=== PATIENT | female | born 1950 | race Caucasian/White ===

== ENCOUNTER 2018-03-10 19:39 | Inpatient (IN) | payer MEDICARE, OTHER ==
[~2018-03-10] VITALS: Ht 185.4 cm; Wt 107.5 kg
[2018-03-10 21:00] LABS: CLARITY,URINE CLOUDY (CLEAR); COLOR,URINE YELLOW (YELLOW); LEUKOCYTE ESTERASE ,URINE 2+ (NEGATIVE); NITRITE,URINE NEGATIVE (NEGATIVE)
[2018-03-10 21:01] LABS: BILIRUBIN,URINE NEGATIVE (NEGATIVE); KETONES,URINE 1+ (NEGATIVE); PROTEIN,URINE DIPSTICK 2+ (NEGATIVE); URINE UROBILINOGEN 0.2 mg/dL (0.2 - 1)
[2018-03-10 21:04] LABS: BASOPHILS % 0.2 % (0.0-1.0); HEMATOCRIT 30.2 % (34.2-44.1); HEMOGLOBIN 10.1 g/dL (12.0-16.0); LYMPHOCYTES # (AUTO) 0.9 (1.0-3.2); LYMPHOCYTES % 10.9 % (18.0-39.1); MEAN CORPUSCULAR HEMOGLOBIN 31.3 pg (28-32); MEAN CORPUSCULAR HGB CONC 33.4 g/dL (31-35); MEAN CORPUSCULAR VOLUME 93.5 fL (81-99); MONOCYTES # (AUTO) 0.5 (0.2-0.8); MONOCYTES % 6.2 % (4.4-11.3); NEUTROPHILS # (AUTO) 6.9 (2.1-6.9); PLATELET COUNT 196 x10e3/uL (140-360); RED BLOOD COUNT 3.23 x10e6/uL (3.6-5.1); RED CELL DISTRIBUTION WIDTH 13.5 % (11.7-14.4)
[2018-03-10] MEDS ORDERED: [UNRECOGNIZED DRUG - OTHER] PO (21:06)
[2018-03-10] MEDS ORDERED: LATANOPROST2.5 ML OP (21:06)
[2018-03-10] MEDS ORDERED: GABAPENTIN100 MG PO (21:06)
[2018-03-10] MEDS ORDERED: NOVOLIN N100 UNIT/1 SQ (21:06)
[2018-03-10] MEDS ORDERED: ARTIFICIAL TEAR15 ML OP (21:06)
[2018-03-10] MEDS ORDERED: NAMENDA10 MG PO (21:06)
[2018-03-10] MEDS ORDERED: MULTIVITAMINS1 EAC7 PO (21:06)
[2018-03-10] MEDS ORDERED: IBUPROFEN200 MG PO (21:06)
[2018-03-10] MEDS ORDERED: ASPIRIN CHEW81 MG PO (21:06)
[2018-03-10] MEDS ORDERED: ASCORBIC ACID500 M2 PO (21:06)
[2018-03-10] MEDS ORDERED: AMLODIPINE BESY10 MG PO (21:06)
[2018-03-10] MEDS ORDERED: EFFEXOR XR 3737.5 MG PO (21:06)
[2018-03-10] MEDS ORDERED: ACETAMINOPHEN325 M1 PO (21:06)
[2018-03-10] MEDS ORDERED: PROMETHAZINE HC25 M1 PO (21:06)
[2018-03-10] MEDS ORDERED: ULTRAM50 MG PO (21:06)
[2018-03-10] MEDS ORDERED: LEVSIN0.125 MG SL (21:06)
[2018-03-10] MEDS ORDERED: ZOLOFT50 MG PO (21:06)
[2018-03-10] MEDS ORDERED: MILK OF MA2400 MG/10 PO (21:06)
[2018-03-10] MEDS ORDERED: OMEPRAZOLE40 MG PO (21:06)
[2018-03-10 21:15] LABS: INR 0.93; PROTHROMBIN TIME 13.3 seconds (11.9-14.5)
[2018-03-10 21:16] LABS: PARTIAL THROMBOPLASTIN TIME 27.1 seconds (23.8-35.5)
[2018-03-10 21:17] LABS: BACTERIA,URINE MODERATE /HPF; WBC,URINE (MAN) 21-50 /HPF (0-5)
[2018-03-10 21:18] LABS: AMORPHOUS SEDIMENT,URINE MODERATE (FEW); EPITHELIAL CELLS,URINE FEW /LPF
[2018-03-10 21:20] LABS: ALBUMIN 3.1 g/dL (3.5-5.0); ANION GAP 15.4 mmol/L (8-16); CALCIUM 9.2 mg/dL (8.4-10.2); CREATININE, SERUM 1.22 mg/dL (0.57-1.11); MAGNESIUM 1.5 MG/DL (1.3-2.1); POTASSIUM 3.4 mmol/L (3.5-5.1)
[2018-03-10 21:27] LABS: CREATINE KINASE MB 1.1 ng/mL (0-5.0)
--- NOTE | 2018-03-10 21:54 | Diagnostic Imaging Report ---
KNEE LEFT THREE VIEWS HISTORY: Pain. COMPARISON: None available. FINDINGS: Exam limited by overlap of the patella by fracture fragments and obliquity on the AP view. Bones: Comminuted displaced fractures involving the distal femur and extending through the condyles. Joints: Advanced tricompartmental changes. Soft tissues: Soft tissue swelling and joint effusion. IMPRESSION: Comminuted displaced fractures of the distal femur. Signed by: DR. Arvin Carrasco MD on 03/10/2018 9:51 PM
[2018-03-10] MEDS ORDERED: SODIUM CHLORIDE 0.9% 1000ML 1,000 ML IV SCH (22:00)
[2018-03-10] MEDS ORDERED: MEROPENEM 1GRAM 1 GM in SODIUM CHLORIDE 0.9% 100 ML 100 ML IV SCH (22:00)
[2018-03-10] MEDS ORDERED: ACETAMINOPHEN 1000 MG/100 ML IV STA (22:03)
--- NOTE | 2018-03-10 22:09 | Diagnostic Imaging Report ---
EXAMINATION: Head CT without contrast. HISTORY:Status post fall. COMPARISON:None. TECHNIQUE: Multidetector axial images were obtained from the foramen magnum to the vertex without contrast. The images were reconstructed using brain and bone algorithms. Thin section brain images were reformatted into coronal and sagittal planes. Dose modulation, iterative reconstruction, and/or weight based adjustment of the mA/kV was utilized to reduce the radiation dose to as low as reasonably achievable. Intravenous contrast: None. IMAGE QUALITY: Suboptimal evaluation due to motion artifacts. FINDINGS: Skull/scalp: No lytic or blastic. lesions. No surgical changes. Parenchyma: Nonspecific bilateral confluent periventricular and patchy subcortical and deep white matter hypodensity are likely related to small vessel ischemic changes. Cortical-based hypodensity with regional volume loss in anterior aspect of left temporal lobe possibly represents chronic encephalomalacia related to prior trauma or vascular insult. No acute hemorrhage, mass or acute major vascular territorial infarct. Arteries: No density suggestive of thrombosis. Dural sinuses: No abnormal density suggestive of thrombosis. Ventricles: Moderate compensated dilatation due to volume loss. Extra-axial spaces: Nonspecific 1.2 cm dural based calcification in left middle cranial fossa. Brain volume: Advanced generalized cerebral volume loss. Craniocervical junction: No mass, Chiari malformation, or basilar invagination. Sella: No mass. Paranasal/mastoid sinuses: Mild mucosal thickening in left ethmoid sinus. IMPRESSION: 1. Suboptimal evaluation due to motion artifact, despite the limitation no gross acute posttraumatic intracranial abnormality. 2. Diffuse supratentorial white matter microvascular ischemic changes. Chronic encephalomalacia in left temporal lobe possibly sequel of prior trauma or vascular insult. 3. Advanced generalized cerebral volume loss. Signed by: Dr. Tia Middleton M.D. on 03/10/2018 10:06 PM
--- NOTE | 2018-03-10 22:14 | Diagnostic Imaging Report ---
History: Status post fall. Comparison studies: None Technique: Axial images were obtained through the cervical region.. Coronal and sagittal images reconstructed from the axial data. Dose modulation, iterative reconstruction, and/or weight based adjustment of the mA/kV was utilized to reduce the radiation dose to as low as reasonably achievable. Intravenous contrast: None Findings: Fractures: None. Soft tissue injuries: None. Atlantoaxial articulation: Intact. Alignment: Normal lordosis. No scoliosis. Cervicomedullary junction: No abnormalities. The foramen magnum is patent. Soft tissues: No abnormalities. Vertebrae: No fractures, infection or neoplasm. Degenerative changes: Mild degenerative disc disease at C4-C5 with posterior discussed effect complex without significant canal stenosis. C5-C6: Mild degenerative disc disease. No canal stenosis. Next and mild right foraminal stenosis due to facet and uncovertebral arthrosis.. IMPRESSION: 1. No acute cervical spine abnormalities. 2. Ligament, spinal cord and or vascular abnormalities cannot be excluded on the basis of this examination. Signed by: Dr. Tia Middleton M.D. on 03/10/2018 10:10 PM
[2018-03-10] MEDS: MEROPENEM 1GM 100 ML IV SCH (22:17)
--- NOTE | 2018-03-10 22:26 | Diagnostic Imaging Report ---
EXAM: CT Left Knee without Contrast INDICATION: reported comminuted distal left femur fx COMPARISON: None. TECHNIQUE: Left knee was scanned utilizing a multidetector helical scanner without IV contrast. Coronal and sagittal reformations were obtained. Routine protocol was performed. IV CONTRAST: None COMPLICATIONS: None RADIATION DOSE: Total DLP: 189.4 mGy*cm CTDIvol has been reviewed. It is below the limits set by the Radiation Protocol Committee (RPC). Dose modulation, iterative reconstruction, and/or weight based adjustment of the mA/kV was utilized to reduce the radiation dose to as low as reasonably achievable. FINDINGS: BONES: Severely comminuted moderately displaced fractures of the distal femur extending into the intercondylar notch. Visualized tibia and fibula as well as the patella appear intact. Advanced tricompartmental degenerative changes of the knee. SOFT TISSUES: Soft tissue swelling and small hemarthrosis. Diffuse vascular calcifications. Varicose veins noted. IMPRESSION: Severely comminuted moderately displaced fractures of the distal femur extending into the intercondylar notch. Signed by: DR. Arvin Carrasco MD on 03/10/2018 10:23 PM
--- NOTE | 2018-03-10 22:33 | Diagnostic Imaging Report ---
PELVIS AP 1-2 VIEWS HISTORY: Status post fall. Reported comminuted distal femur fracture. COMPARISON: None available. FINDINGS: Bones: No acute displaced fracture. Osseous alignment is within normal limits. Joints: Moderate degenerative changes of the hips, SI joints, and visualized lumbosacral spine. Soft tissues: The soft tissues appear unremarkable. IMPRESSION: No acute radiographic abnormality. Signed by: DR. Arvin Carrasco MD on 03/10/2018 10:30 PM
--- NOTE | 2018-03-10 22:34 | Diagnostic Imaging Report ---
EXAMINATION: CHEST SINGLE (PORTABLE) INDICATION: Fall. COMPARISON: None FINDINGS: AP view TUBES and LINES: None. LUNGS: Lungs are not well inflated. Lungs are clear. There is no evidence of pneumonia or pulmonary edema. PLEURA: No pleural effusion or pneumothorax. HEART AND MEDIASTINUM: The cardiomediastinal silhouette is unremarkable. BONES AND SOFT TISSUES: No acute displaced fractures within the limitations of technique. Soft tissues are unremarkable. UPPER ABDOMEN: No free air under the diaphragm. IMPRESSION: No acute thoracic abnormality. Signed by: DR. Arvin Carrasco MD on 03/10/2018 10:31 PM
[2018-03-10] MEDS ORDERED: ONDANSETRON HCL INJ 2MG/ML 2ML 2 MG/ML VIAL IV STA (23:52)
[2018-03-10] MEDS ORDERED: INSULIN LISPRO 100 UNIT/1 ML 3ML VIAL SQ STA (23:52)
[2018-03-10] MEDS ORDERED: MORPHINE SULFATE 2 MG/ML SYR 1ML IV STA (23:52)
[2018-03-10] MEDS ORDERED: MORPHINE SULFATE INJ 4 MG/ML INJ 1ML ONE (23:57)
[2018-03-11] MEDS ORDERED: MORPHINE SULFATE 2 MG/ML SYR 1ML IV PRN
[2018-03-11] MEDS ORDERED: SODIUM CHLORIDE 0.9% 1000ML 1,000 ML IV ONE
--- OUTSIDE RECORDS SUMMARY | 2018-03-11 00:02 | XMS REPORT ---
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 Allergies, Adverse Reactions, Alerts This patient has no known allergies or adverse reactions. Medications This patient has no known medications. Results Test Description Test Time Test Comments Text Results Atomic Results Result Comments CHEST SINGLE (PORTABLE) 2018-03-10 22:30:00 [place] [address] Patient Name: MALVIN DEXTER MR #: [id number] : 1950 Age/Sex: 67/F Req #: [id number] Adm Physician: Ordered by: DANIEL ROTH MD Report #: [id number] Location: ER Room/Bed: Procedure: [id number] DX/CHEST SINGLE (PORTABLE) Exam Date: 03/10/18 Exam Time: 2100 REPORT STATUS: Signed EXAMINATION: CHEST SINGLE (PORTABLE) INDICATION: Fall. COMPARISON: None FINDINGS: AP view TUBES and LINES: None. LUNGS: Lungs are not well inflated. Lungs are clear. There is no evidence of pneumonia or pulmonary edema. PLEURA: No pleural effusion or pneumothorax. HEART AND MEDIASTINUM: The cardiomediastinal silhouette is unremarkable. BONES AND SOFT TISSUES: No acute displaced fractures within the limitations of technique. Soft tissues are unremarkable. UPPER ABDOMEN: No free air under the diaphragm. IMPRESSION: No acute thoracic abnormality. Signed by: DR. Arvin Ta MD on 03/10/2018 10:31 PM Dictated By: ARVIN TA MD 30 Transcribed By: JAZ on 03/10/182230 COPY TO: DANIEL ROTH MD PELVIS AP 1-2 VIEWS 2018-03-10 22:28:00 [facility] [address] [place] [address] Patient Name: MALVIN DEXTER MR #: [id number] : 1950 Age/Sex: 67/F Req #: [id number] Adm Physician: Ordered by: DANIEL ROTH MD Report #: [id number] Location: ER Room/Bed: Procedure: [id number] DX/PELVIS AP 1-2 VIEWS Exam Date: 03/10/18 Exam Time: 2100 REPORT STATUS: Signed PELVIS AP 1-2 VIEWS HISTORY: Status post fall. Reported comminuted distal femur fracture. COMPARISON: None available. FINDINGS: Bones: No acute displaced fracture. Osseous alignment is within normal limits. Joints: Moderate degenerative changes of the hips, SI joints, and visualized lumbosacral spine. Soft tissues: The soft tissues appear unremarkable. IMPRESSION: No acute radiographic abnormali ty. Signed by: DR. Arvin Ta MD on 03/10/2018 10:30 PM Dictated By: ARVIN TA MD 29 Transcribed By: JAZ on 03/10/182229 COPY TO: DANIEL ROTH MD CT CERVICAL SPINE WO 2018-03-10 22:06:00 [facility] [address] [place] [address] Patient Name: MALVIN DEXTER MR #: [id number] : 1950 Age/Sex: 67/F Req #: [id number] Adm Physician: Ordered by: DANIEL ROTH MD Report #: [id number] Location: ER Room/Bed: Procedure: [id number] CT/CT CERVICAL SPINE WO Exam Date: 03/10/18 Exam Time: 2100 REPORT STATUS: Signed History: Status post fall. Comparison studies: None Technique: Axial images were obtained through the cervical region.. Coronal and sagittal images reconstructed from the axial data. Dose modulation, iterative reconstruction, and/or weight based adjustment of the mA/kV was utilized to reduce the radiation dose to as low as reasonably achievable. Intravenous contrast: None Findings: Fractures: None. Soft tissue injuries: None. Atlantoaxial articulation: Intact. Alignment: Normal lordosis. No scoliosis. Cervicomedullary junction: No abnormalities. The foramen magnum is patent. Soft tissues: No abnormalities. Vertebrae: No fractures, infection or neoplasm. Degenerative changes: Mild degenerative disc disease at C4-C5 with posterior discussed effect complex without significant canal stenosis. C5-C6: Mild degenerative disc disease. No canal stenosis. Next and mild right foraminal stenosis due to facet and uncovertebral arthrosis.. IMPRESSION: 1. No acute cervica l spine abnormalities. 2. Ligament, spinal cord and or vascular abnormalities cannot be excluded on the basis of this examination. Signed by: Dr. Tia Middleton M.D. on 03/10/2018 10:10 PM Dictated By: TIA MIDDLETON MD [id number] Transcribed By: JAZ on 03/10/18 2440 COPY TO: DANIEL ROTH MD CT KNEE LEFT WO 2018-03-10 21:51:00 [place] [address] Patient Name: MALVIN DEXTER MR #: [id number] : 1950 Age/Sex: 67/F Req #: [id number] Adm Physician: Ordered by: DANIEL ROTH MD Report #: [id number] Location: ER Room/Bed: Procedure: [id number] CT/CT KNEE LEFT WO Exam Date: 03/10/18 Exam Time: 2100 REPORT STATUS: Signed EXAM: CT Left Knee without Contrast INDICATION: reported comminuted distal left femur fx COMPARISON: None. TECHNIQUE: Left knee was scanned utilizing a multidetector helical scanner without IV contrast. Coronal and sagittal reformations were obtained. Routine protocol was performed. IV CONTRAST: None COMPLICATIONS: None RADIATION DOSE: Total DLP: 189.4 mGy*cm CTDIvol has been reviewed. It is below the limits set by the Radiation Protocol Committee (RPC). Dose modulation, iterative reconstruction, and/or weight based adjustment of the mA/kV was utilized to reduce the radiation dose to as low as reasonably achievable. FINDINGS: BONES: Severely comminuted moderately displaced fractures of the distal femur extending into the intercondylar notch. Visualized tibia and fibula as well as the patella appear intact. Advanced tricompartmental degenerative changes of the knee. SOFT TISSUES: Soft tissue swelling and small hemarthrosis. Diffuse vascular calcifications. Varicose veins noted. IMPRESSION: Severely comminuted moderately displaced fractures of the distal femur extending into the intercondylar notch. Signed by: DR. Arvin Ta MD on 03/10/2018 10:23 PM Dictated By: ARVIN TA MD 22 Transcribed By: JAZ on 03/10/182222 COPY TO: DANIEL ROTH MD CT BRAIN WO 2018-03-10 21:49:00 [place] [address] Patient Name: MALVIN DEXTER MR #: [id number] : 1950 Age/Sex: 67/F Req #: [id number] Adm Physician: Ordered by: DANIEL ROTH MD Report #: [id number] Location: ER Room/Bed: Procedure: [id number] CT/CT BRAIN WO Exam Date: 03/10/18 Exam Time: 2100 REPORT STATUS: Signed EXAMINATION: Head CT without contrast. HISTORY: Status post fall. COMPARISON:None. TECHNIQUE: Multidetector axial images were obtained from the foramen magnum to the vertex without contrast. The images were reconstructed using brain and bone algorithms. Thin section brain images were reformatted into coronal and sagittal planes. Dose modulation, iterative reconstruction, and/or weight based adjustment of the mA/kV was utilized to reduce the radiation dose to as low as reasonably achievable. Intravenous contrast: None. IMAGE QUALITY: Suboptimal evaluation due to motion artifacts. FINDINGS: Skull/scalp: No lytic or blastic. lesions. No surgical changes. Parenchyma: Nonspecific bilateral confluent periventricular and patchy subcortical and deep white matter hypodensity are likely related to small vessel ischemic changes. Cortical-based hypodensity with regional volume loss in anterior aspect of left temporal lobe possibly represents chronic encephalomalacia related to prior trauma or vascular insult. No acute hemorrhage, mass or acute major vascular territorial infarct. Arteries: No density suggestive of thrombosis. Dural sinuses: No abnormal density suggestive of thrombosis. Ventricles: Moderate compensated dilatation due to volume loss. Extra-axial spaces: Nonspecific 1.2 cm dural based calcification in left middle cranial fossa. Brain volume: Advanced generalized cerebral volume loss. Craniocervical junction: No mass, Chiari malformation, or basilar invagination. Sella: No mass. Paranasal/mastoid sinuses: Mild mucosal thickening in left ethmoid sinus. IMPRESSION: 1. Suboptimal evaluation due to motion artifact, despite the limitation no gross acute posttraumatic intracranial abnormality. 2. Diffuse supratentorial white matter microvascular ischemic changes. Chronic encephalomalacia in left temporal lobe possibly sequel of prior trauma or vascular insult. 3. Advanced generalized cerebral volume loss. Signed by: Dr. Tia Middleton M.D. on 03/10/2018 10:06 PM Dictated By: TIA MIDDLETON MD 05 Transcribed By: JAZ on 03/10/182205 COPY TO: DANIEL ROTH MD KNEE LEFT THREE VIEWS 2018-03-10 21:46:00 [place] [address] Patient Name: MALVIN DEXTER MR #: [id number] : 1950 Age/Sex: 67/F Req #: [id number] Adm Physician: Ordered by: DANIEL ROTH MD Report #: [id number] Location: ER Room/Bed: Procedure: [id number] DX/KNEE LEFT THREE VIEWS Exam Date: 03/10/18 Exam Time: 2100 REPORT STATUS: Signed KNEE LEFT THREE VIEWS HISTORY: Pain. COMPARISON: None available. FINDINGS: Exam limited by overlap of the patella by fracture fragments and obliquity on the AP view. Bones: Comminuted displaced fractures involving the distal femur and extending through the condyles. Joints: Advanced tricompartmental changes. Soft tissues: Soft tissue swelling and joint effusion. IMPRESSION: Comminuted displaced fractures of the distal femur. Signed by: DR. Arvin Ta MD on 03/10/2018 9:51 PM Dictated By: ARVIN TA MD 50 Transcribed By: JAZ on 03/10/182150 COPY TO: DANIEL ROTH MD
--- NOTE | 2018-03-11 01:12 | NUR ---
dr woody informed of bp 98/53. instructed to bolus remaining 300cc of ivf and then start on ns at 100cc/hr x 1.
--- NOTE | 2018-03-11 01:17 | NUR ---
300cc bolus completed. ns at 100cc/hr x 1 liter started.
[2018-03-11 05:35] LABS: BASOPHILS % 0.3 % (0.0-1.0); EOSINOPHILS % 0.3 % (0.0-6.0); HEMATOCRIT 25.7 % (34.2-44.1); HEMOGLOBIN 8.7 g/dL (12.0-16.0); LYMPHOCYTES # (AUTO) 1.3 (1.0-3.2); LYMPHOCYTES % 16.8 % (18.0-39.1); MEAN CORPUSCULAR HEMOGLOBIN 31.6 pg (28-32); MEAN CORPUSCULAR HGB CONC 33.9 g/dL (31-35); MEAN CORPUSCULAR VOLUME 93.5 fL (81-99); MONOCYTES # (AUTO) 0.6 (0.2-0.8); MONOCYTES % 8.2 % (4.4-11.3); NEUTROPHILS # (AUTO) 5.8 (2.1-6.9); NEUTROPHILS % 73.9 % (38.7-80.0); PLATELET COUNT 154 x10e3/uL (140-360); RED BLOOD COUNT 2.75 x10e6/uL (3.6-5.1); RED CELL DISTRIBUTION WIDTH 13.6 % (11.7-14.4)
[2018-03-11 05:56] LABS: ALBUMIN 2.7 g/dL (3.5-5.0); ALBUMIN/GLOBULIN RATIO 0.9 (0.8-2.0); ANION GAP 13.6 mmol/L (8-16); CALCIUM 8.7 mg/dL (8.4-10.2); POTASSIUM 3.6 mmol/L (3.5-5.1)
--- NOTE | 2018-03-11 07:00 | NUR ---
received report fromoff going nurse. patient in room in hospital bed resting quietly with eyes closed. no s/s of acute distress. resp even and nonlabored. pending room assignment, will continue to monitor.
[2018-03-11] MEDS: MEROPENEM 1GM 100 ML IV SCH ×2 (10:19→10:24)
[2018-03-11] MEDS ORDERED: DEXTROSE 50% SYRINGE 50 ML IV PRN (11:45)
[2018-03-11] MEDS ORDERED: PROMETHAZINE HCL 25 MG TAB PO PRN (11:45)
[2018-03-11] MEDS ORDERED: HYOSCYAMINE 0.125 MG TAB SL PRN (11:45)
[2018-03-11] MEDS ORDERED: TRAMADOL HCL 50 MG TAB PO PRN (11:45)
[2018-03-11] MEDS ORDERED: ACETAMINOPHEN 325 MG TAB PO PRN (11:45)
--- NOTE | 2018-03-11 12:57 | History and Physical ---
CHIEF COMPLAINT: Fall, from [facility]. HISTORY OF PRESENT ILLNESS: Ms. Blanco is a 67-year-old female. She was transferred after a fall at the [facility], she was at [facility]. Patient has dementia and is unable to give me any history. According to the ER notes, they spoke to the daughter and the patient is DNR. She has right DKA. Source of history is the chart and the ER chart. PAST MEDICAL HISTORY: Per the chart. History of hypertension and hyperlipidemia. She is bedbound, amputated lower extremities. REVIEW OF SYSTEMS: Unable to elicit any as patient is unable to give me any history. FAMILY AND SOCIAL HISTORY: Per the chart. She lives at the [facility]. PHYSICAL EXAMINATION VITAL SIGNS: Temperature 98.4, pulse of 103, blood pressure 119/56, respiratory rate of 18. HEENT: Head atraumatic, normocephalic. NECK: Supple. CHEST: Clear to auscultation bilaterally. No wheezing. HEART: S1 and S2 audible. ABDOMEN: Soft. EXTREMITIES: Below-knee amputation and then severely comminuted moderately displaced fracture of left knee. LABS: White count of 7.8, hemoglobin 8.7 and platelets 154. Chemistry is within normal limits. Creatinine was 1.2 yesterday and its 1.0 today with IV hydration. Sodium of 144 and potassium 3.6. ASSESSMENT: Ms. Blanco is a 67-year-old female. She is a [facility] resident, apparently has dementia but she is unable to give me any history. Patient had a brain CT done in the emergency room, which showed diffuse supratentorial white matter microvascular changes, chronic encephalomalacia and left temporal lobe sequelae from prior trauma, vascular insult, and traumatic brain injury versus the dementia which she has, presented after a fall from [facility] resulting in fracture of the femur. CURRENT PROBLEMS 1. Comminuted fracture of the femur. 2. Bedbound status. 3. Below-knee amputation status. 4. Hypertension. 5. Possible traumatic brain injury versus vascular dementia. PLAN 1. Resume the home medications. 2. Orthopedic consult. 3. Renal failure has resolved with IV hydration. 4. We will try to get in touch with patient's POA According to the sheet and ER physician's report, patient is DNR. If surgery is indicated, then she appears to be medically stable to undergo femur surgery. I will defer the need for surgery to orthopedic surgery. Job#: [id number] ALAN
[2018-03-11] MEDS ORDERED: SODIUM CHLORIDE 0.9% 1000ML 1,000 ML ONE (12:58)
--- NOTE | 2018-03-11 14:00 | NUR ---
German PALOMARES WITH DR. FREIRE'S SVC IN TO SEE THE PT AND SPOKE WITH FAMILY AT BEDSIDE RE SX FOR THIS PATIENT AND HAS ALSO SPOKE WITH DR. DAVIS
--- NOTE | 2018-03-11 14:50 | NUR ---
regular lunch tray ordered for this patient
--- NOTE | 2018-03-11 16:00 | NUR ---
PT HAS CONSUMED 90% OF HER LUNCH WITH MINIMAL ASSISTANCE
[2018-03-11] MEDS: MORPHINE SULFATE INJ 4 MG/ML INJ 1ML IV PRN (16:20)
[2018-03-11] MEDS: ONDANSETRON HCL INJ 2MG/ML 2ML 2 MG/ML VIAL IV PRN (16:20)
--- NOTE | 2018-03-11 18:10 | Consultation ---
DATE OF CONSULTATION: March 11, 2018 REASON FOR CONSULTATION: Left distal femur fracture. HISTORY OF PRESENT ILLNESS: This patient is a 67-year-old female with a significant history of advanced dementia, who is status post right BKA, who presents to the ER after a fall. The patient is a custodial resident at [facility]. She was reportedly discovered by the staff the following morning beside her bed. She was brought into [facility] ER where she was noted to have a left femur fracture. The patient has advanced dementia and does not respond to any questioning. Further history is obtained from her niece. Apparently, she has a 10-year history of dementia, which has progressively worsened over the last few years. The patient does not respond verbally to any communication. The patient had a right BKA from a diabetic foot wound in 2015. She has reportedly been wheelchair bound over the last 3 years. PAST MEDICAL HISTORY 1. Type 2 diabetes mellitus. 2. Advanced dementia. 3. Status post right BKA in 2005. SOCIAL HISTORY: The patient is a custodial resident. She is . Her niece has power of document review attorney. ALLERGIES: PENICILLIN, SULFA. PHYSICAL EXAMINATION GENERAL: This is a well-nourished elderly female who is lying supine. She is awake. She has a flat affect. She does not respond to any questioning. EXTREMITIES: Her left leg is in a well-padded posterior splint. Her toes are warm. Capillary refill is brisk. She has a well-healed right BKA. IMAGING: X-rays of the right knee show a severely comminuted intra-articular left supracondylar femur fracture. CT scan imaging reveals the same thing with intercondylar notch involvement. ASSESSMENT AND PLAN: This is a 67-year-old female with a left supracondylar distal femur fracture. The findings were discussed at length with her niece. Her situation is complicated by her advanced dementia and osteoporosis with a pathological fracture. The treatment options were discussed. Nonsurgical management versus surgical management was discussed. The patient still participates in transfers. The niece would like to proceed with surgical intervention to maintain some level of mobility. Given the severity of the comminution and her osteoporotic bone, open reduction internal fixation with plate and screws would result in marginal fixation. 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 Given these factors, she would be better suited for surgical intervention with a hinged knee prosthesis. The risks and benefits of all the options were discussed with the niece. The niece would like to proceed with surgery. I have recommended a hinged total knee arthroplasty given the fact that she has advanced dementia and will not be able to follow commands and be nonweightbearing on the left side. The niece states she understands and wishes to proceed. We will plan on a hinged total knee arthroplasty early next week. Thank you so much for the consultation. Dictated By: Ajit Holman PA-C Job#: [id number] GOPAL
--- NOTE | 2018-03-11 18:43 | NUR ---
edil from the lab called to report + blood culture ---gram + rods
[2018-03-11] MEDS: INSULIN REGULAR, HUMAN 100 UNIT/1 ML 3ML VIAL SQ SCH ×2 (19:24→21:30)
[2018-03-11] MEDS: ASCORBIC ACID 500 MG TAB PO SCH (19:25)
[2018-03-11 20:00] VITALS: BP 107/53
[2018-03-11 20:20] VITALS: BP 140/78
[2018-03-11] MEDS: SERTRALINE HCL 50 MG TAB PO SCH (21:00)
[2018-03-11] MEDS: GABAPENTIN 100 MG CAP PO SCH (21:00)
--- NOTE | 2018-03-11 21:30 | NUR ---
RECEIVED ADMISSION FROM ER IN A HOSPITAL BED WITH H/O FALL AND FRACTURE L.FEMUR.ASSESSMENT DONE.ALLERT.BUT RESPONDING ONLY TO VOICE AND PAIN.NO FAMILY MEMBER WITH PT.BECKER IS IN PLACE.IV IS IN PLACE TO MARCUS #20.NS @100 RUNNING.NO RESP.DISTRESS.O2 NC 2L PLACED.BED ALARM ON.RECEIVED REPORT FROM ER THAT PT HAD DINNER WITH HER DAUGHTER.BUT NOW PT REFUSED TO TAKE PO MEDICATION.CHARGE NURSE IS AWARE OF THAT.PT IS UNABLE TO PROVIDE ANY HISTORY.KEEP MONITORING THE PT.
[2018-03-11 22:00] VITALS: BP 110/63
[2018-03-11] MEDS: LATANOPROST(OPTH) 2.5 ML BTL OP SCH (22:27)
[2018-03-12] VITALS (8 sets, daily range): BP systolic 109–170; BP diastolic 53–77
[2018-03-12] MEDS: MORPHINE SULFATE INJ 4 MG/ML INJ 1ML IV PRN ×3 (01:54→20:57)
[2018-03-12] MEDS: ONDANSETRON HCL INJ 2MG/ML 2ML 2 MG/ML VIAL IV PRN ×3 (01:54→20:57)
--- NOTE | 2018-03-12 02:33 | NUR ---
HAD BOWEL MOVEMENT.REPOSITIONED AFTER GIVING PAIN MEDICINE.
--- NOTE | 2018-03-12 05:00 | NUR ---
Stable condition. Left leg is in a well-padded posterior splint.
--- NOTE | 2018-03-12 07:00 | NUR ---
REPORT GIVEN TO THE ONCOMING RN.WALKING ROUNDS DONE.STABLE CONDITION.
--- NOTE | 2018-03-12 07:20 | NUR ---
Pt rec'd in walking rounds with shift report. Pt does not respond to verbal commands, she responds to painful stimuli only. Bed is in lowest position with SR^x3 for safety. Bed alarm activated.
[2018-03-12] MEDS: INSULIN REGULAR, HUMAN 100 UNIT/1 ML 3ML VIAL SQ SCH ×4 (07:30→21:20)
[2018-03-12] MEDS: PANTOPRAZOLE SOD 40 MG TABEC PO SCH (07:30)
[2018-03-12] MEDS: AMLODIPINE BESYLATE 10 MG TAB PO SCH (09:00)
[2018-03-12] MEDS: VENLAFAXINE HCL 37.5MG XR CAP PO SCH (09:00)
[2018-03-12] MEDS: ASPIRIN 81 MG CHEW TAB PO SCH (09:00)
[2018-03-12] MEDS: ASCORBIC ACID 500 MG TAB PO SCH ×2 (09:00→17:00)
[2018-03-12] MEDS: MULTIVITAMINS/MINERALS TAB PO SCH (09:00)
[2018-03-12] MEDS: MEMANTINE 10 MG TAB PO SCH (09:00)
[2018-03-12] MEDS: MEROPENEM 1GM 100 ML IV SCH ×2 (10:00→23:00)
--- NOTE | 2018-03-12 15:48 | NUR ---
Pt pulled out IV, pulling at rome, screaming and crying. Call placed to next of kin, Mary, requesting family to be at bedside to monitor patient; Per Mary, she will be making calls and someone will be at bedside.
--- NOTE | 2018-03-12 20:00 | NUR ---
ASSESSMENT DONE.NO REP.DISTRESS.BED LOCKED AND IN LOWEST POSITION.BED ALARM ON.PT HAD A BURGER .BECKER CARE GIVEN.
[2018-03-12] MEDS: GABAPENTIN 100 MG CAP PO SCH (21:10)
[2018-03-12] MEDS: SERTRALINE HCL 50 MG TAB PO SCH (21:10)
[2018-03-12] MEDS: LATANOPROST(OPTH) 2.5 ML BTL OP SCH (21:10)
[2018-03-12] MEDS: SODIUM CHLORIDE 0.9% 1000ML 1,000 ML IV SCH (23:54)
--- NOTE | 2018-03-13 00:30 | NUR ---
CONSENT SIGNED.MAINTAINING NPO FOR THE PROCEDURE.NEW ORDER RECEIVED FROM .NEW IV STARTED @ R.HAND #20.PATENT.KEEP MONITORING THE PT.FAMILY MEMBER @ BED SIDE.
[2018-03-13 01:43] VITALS: BP 124/57
[2018-03-13 05:02] VITALS: BP 135/61
[2018-03-13] MEDS ORDERED: VANCOMYCIN 1GM/NS 250 ML 250 ML IV ONE (06:30)
[2018-03-13] MEDS: ONDANSETRON HCL INJ 2MG/ML 2ML 2 MG/ML VIAL IV PRN (06:37)
[2018-03-13] MEDS: MORPHINE SULFATE INJ 4 MG/ML INJ 1ML IV PRN (06:38)
--- NOTE | 2018-03-13 06:50 | NUR ---
REPORT GIVEN TO THE ONCOMING RN.WALKING ROUNDS DONE.STABLE CONDITION.
[2018-03-13] MEDS: PANTOPRAZOLE SOD 40 MG TABEC PO SCH (07:30)
[2018-03-13] MEDS: INSULIN REGULAR, HUMAN 100 UNIT/1 ML 3ML VIAL SQ SCH ×4 (07:30→21:52)
[2018-03-13] MEDS: SODIUM CHLORIDE 0.9% 1000ML 1,000 ML IV SCH ×3 (08:15→18:15)
[2018-03-13] MEDS: AMLODIPINE BESYLATE 10 MG TAB PO SCH (09:00)
[2018-03-13] MEDS: ASCORBIC ACID 500 MG TAB PO SCH ×2 (09:00→17:00)
[2018-03-13] MEDS: VENLAFAXINE HCL 37.5MG XR CAP PO SCH (09:00)
[2018-03-13] MEDS: ASPIRIN 81 MG CHEW TAB PO SCH (09:00)
[2018-03-13] MEDS: MULTIVITAMINS/MINERALS TAB PO SCH (09:00)
[2018-03-13] MEDS: MEMANTINE 10 MG TAB PO SCH (09:00)
[2018-03-13 09:08] VITALS: BP 137/69
[2018-03-13] MEDS ORDERED: MAGNESIUM HYDROXIDE 30 ML UDC PO PRN (10:00)
--- NOTE | 2018-03-13 10:25 | NUR ---
assessment complete no distress noted,updated on poc vocied understanding, denies pain at this time, 02 @ 2l nc, kimberly wrap to left leg intact, ivf infusing to r hand 20g no ss of infiltration noted, no other co voiced call light in reach will continue ot monitor
[2018-03-13 10:28] VITALS: BP 137/69
[2018-03-13] MEDS ORDERED: ROPIVACAINE 246.25 MG, EPINEPHRINE HCL 1:1000 1ML 0.5 MG, CLONIDINE HCL 0.08 MG, KETORO... INJ ONE ×5 (11:00)
[2018-03-13 11:08] LABS: % IRON SATURATION 5 % (15-50); IRON 8 ug/dL (50-170); TOTAL IRON BINDING CAPACITY 162 ug/dL (261-478); TRANSFERRIN 116 mg/dL (180-382)
[2018-03-13] MEDS ORDERED: TRANEXAMIC ACID 1,000 MG/10 ML ML ONE (11:15)
[2018-03-13] MEDS ORDERED: BACITRACIN 50,000 UNIT VIAL ONE ×2 (11:15→12:41)
--- NOTE | 2018-03-13 11:20 | NUR ---
down to or left in stable condition
[2018-03-13] MEDS: VANCOMYCIN 1GM/NS 250 ML 250 ML IV SCH ×2 (11:45→23:56)
[2018-03-13] MEDS ORDERED: CEFEPIME HCL 1 GM VIAL IV SCH (11:45)
[2018-03-13] MEDS: CEFEPIME 1GM/NS 0.9% 50 ML 50 ML IV SCH ×2 (12:00→21:39)
--- NOTE | 2018-03-13 13:23 | Consultation ---
DATE OF CONSULTATION: March 13, 2018 INFECTIOUS DISEASE CONSULTATION I want to thank Dr. Negron and Dr. Cooper for this kind consult. This is a 67-year-old lady with severe dementia, correction resident, previous history of a right BKA, status post fall found to have severely comminuted moderately displaced fracture of the distal femur extending into the intercondylar notch. CT of the brain was done showing advanced general cerebral volume loss, chronic encephalomalacia in the left temporal lobe, possibly sequelae of prior trauma or vascular insult. CT of the C-spine showed no acute abnormalities. Blood culture was done. One was negative and the other one showed gram-positive rods. The patient has been cleared for surgery. As a matter of fact, they are here to pick her up for orthopedic surgery and going for repair of the left lower extremity fracture. Infectious disease consulted for the management of antibiotics and abnormal blood culture. PAST MEDICAL HISTORY: Includes severe dementia, diabetes, type 2, status post right BKA, depression, neuropathy, GERD, chronic pain syndrome, severe debility. MEDICATIONS: List has been reviewed as infectious disease point of view. The patient is on no active antibiotics noted. The patient had received vancomycin and Merrem. Vancomycin one dose and Merrem since March 10, 2018. LABORATORY STUDIES: White blood cells 7.8, platelets 154,000, hemoglobin 8.7. Sodium 139, creatinine of 1, BUN 43. Lactic acid 17.9 and within normal limits. Radiology as mentioned above. Microbiology as mentioned above. REVIEW OF SYSTEMS: Unable to obtain review of systems secondary to the patient's advanced dementia. Open eyes but not verbal. PHYSICAL EXAMINATION GENERAL: Open eyes, comfortable in the supine position in bed. No acute distress. VITALS: Temperature 96.8, blood pressure 135/61, pulse 81, respirations 18. CV: S1 and S2. CHEST: She has decreased breath. Equal expansion. No acute distress. ABDOMEN: Soft and nontender. No distention. Bowel sounds positive in 4 quadrants. HEENT: Moist. No JVD. EXTREMITIES: Old right BKA. Left lower extremity with Jermaine wrap and protected. ASSESSMENT AND PLAN: This is a 67-year-old correction resident, female with advanced dementia, old right below knee amputation, status post fall and fracture of her left lower extremity as mentioned above, abnormal blood culture, most likely contaminated blood. The patient is admitted with temperature of 101. Chest x-ray also showed no acute thoracic abnormality. The patient received vancomycin 1 g today. Also, the patient had meropenem. Both have been stopped at this point. Blood culture most likely is contaminated. This case was discussed with Dr. Quinonez in detail as wait for surgery to be done. Further management of this patient is based on daily findings, laboratory and physical examination. Fever has improved from 101. Will monitor the patient daily throughout this hospitalization. Thank you for this kind consult. DICTATED BY ZULAY WESLEY Job#: [id number] RI
[2018-03-13] MEDS ORDERED: SODIUM CHLORIDE 0.9% 1000ML 1,000 ML ONE (14:26)
[2018-03-13] MEDS ORDERED: PHENYLEPHRINE HCL 1% 10 MG/ML VIAL IV ONE (15:00)
[2018-03-13] MEDS ORDERED: SODIUM CHLORIDE 0.9% 100 ML 100 ML IV ONE (15:00)
[2018-03-13] MEDS ORDERED: ONDANSETRON HCL INJ 2MG/ML 2ML 2 MG/ML VIAL ONE (15:16)
[2018-03-13] MEDS ORDERED: LIDOCAINE HCL 2% LOCAL INJ 5 ML SDV VIAL INJ ONE (15:16)
[2018-03-13] MEDS ORDERED: PROPOFOL IV EMULSION 10 MG/ML 20 ML VIAL ONE (15:16)
[2018-03-13] MEDS ORDERED: SEVOFLURANE INHAL SOLN 250 ML PEN BTL ONE (15:16)
[2018-03-13] MEDS ORDERED: PHENYLEPHRINE HCL 1% 10 MG/ML VIAL ONE (15:16)
[2018-03-13] MEDS ORDERED: ACETAMINOPHEN 650 MG SUPP PR PRN (15:45)
[2018-03-13] MEDS ORDERED: ONDANSETRON HCL INJ 2MG/ML 2ML 2 MG/ML VIAL IV PRN (15:45)
[2018-03-13] MEDS ORDERED: ZOLPIDEM TARTRATE 5 MG TAB PO PRN (15:45)
[2018-03-13] MEDS ORDERED: PROMETHAZINE HCL (IM) 25 MG/ML VIAL INJ PRN (15:45)
[2018-03-13] MEDS ORDERED: KETOROLAC TROMETHAMINE 30 MG/ML VIAL IV PRN (15:45)
[2018-03-13] MEDS ORDERED: DOCUSATE SODIUM 100 MG CAP PO PRN (15:45)
[2018-03-13] MEDS ORDERED: HYDROCODONE/APAP 5MG-325MG TAB PO PRN (15:45)
[2018-03-13] MEDS ORDERED: VANCOMYCIN 1GM/NS 250 ML 250 ML IV SCH (15:45)
[2018-03-13] MEDS ORDERED: HYDROCODONE/APAP 7.5MG-325MG 1 EA TAB PO PRN (15:45)
[2018-03-13] MEDS ORDERED: DIPHENHYDRAMINE HCL INJ 50 MG/ML VIAL IM/IV PRN (15:45)
[2018-03-13] MEDS ORDERED: ACETAMINOPHEN 325 MG TAB PO PRN (16:00)
[2018-03-13] MEDS: CELECOXIB 100 MG CAP PO SCH (17:00)
[2018-03-13] MEDS: NPH, HUMAN INSULIN ISOPHANE 100 UNIT/1 ML 3ML VIAL SQ SCH (17:00)
[2018-03-13] MEDS: ARTIFICIAL TEARS (OPTH) 15 ML BTL OP SCH (17:00)
[2018-03-13 17:05] LABS: HEMATOCRIT 20.8 % (34.2-44.1); HEMOGLOBIN 6.8 g/dL (12.0-16.0)
--- NOTE | 2018-03-13 17:28 | Diagnostic Imaging Report ---
Knee limited right CPT code: 18155 Indication: Postop; comminuted fracture left femur Technique: AP and lateral view obtained of the left knee. Comparison: CT left knee 03/10/2018 Findings: See impression. IMPRESSION: Distal left femoral osteotomy has been performed with insertion of a complete knee prosthesis. The hardware is in excellent anatomic alignment without associated fracture. Multiple anterior skin juan have been applied. Proximal fibula is intact and in normal position. Signed by: Dr. Orestes Britt MD on 03/13/2018 5:24 PM
[2018-03-13] MEDS: ACETAMINOPHEN 1000 MG/100 ML IV SCH (18:00)
[2018-03-13] MEDS ORDERED: FENTANYL CITRATE/PF 100MCG/2 ML INJ ONE (18:03)
--- NOTE | 2018-03-13 18:17 | Operative Report ---
DATE OF PROCEDURE: March 13, 2018 TECHNICIAN TELECOMMUNICATION SYSTEMS: Ajit Holman PA-C The patient was brought to the operating room for induction of anesthesia. Throughout this case, my PA's assistance was necessary for retraction of soft tissue and positioning of the extremity. This allows for efficient and technically successful execution of the operation and is considered medically necessary. PREOPERATIVE DIAGNOSES 1. Osteoporotic pathologic fracture of left supracondylar femur with intra-articular extension. 2. Severe osteoarthritis, left knee. POSTOPERATIVE DIAGNOSES 1. Osteoporotic pathologic fracture of left supracondylar femur with intra-articular extension. 2. Severe osteoarthritis, left knee. PROCEDURE: Left total knee replacement with distal femoral replacement. INDICATIONS: The patient is a medically frail 67-year-old lady. She is a senior living resident and has dementia. She has limited mobility and is able to transfer to a wheelchair. She is status post a right [id number] amputation some years ago. She fell and sustained a supracondylar femur fracture with intra-articular extension. She has advanced osteoporosis. She also has neglected osteoarthritis of her left knee. The findings and options have been discussed. In order to give her an extremity to possibly stand on, we have elected to perform a hinged total knee replacement with a distal femoral replacement. The risks and benefits have been explained to her niece who has power of estate planning attorney. She states she understands and wishes to proceed. She understands that, all considered, prognosis is very guarded. DESCRIPTION OF PROCEDURE: The patient was brought to the operating room and placed under general anesthetic. Her left lower extremity was prepped and draped in a sterile manner. She received prophylactic antibiotics in the holding area. A preoperative time-out was performed. The extremity was exsanguinated and a proximal tourniquet was inflated to 350 mmHg. An incision was made over the anterior aspect of the left knee. It was immediately evident that she had a severe venous tourniquet. There was extensive bleeding. The tourniquet was deflated. The bleeding persisted severely. She extremity was elevated and exsanguinated a second time. The tourniquet was inflated to 400 mmHg. We returned to the wound. There was severe unabated bleeding throughout. Every vein and arterial bleeder was bleeding profusely. Time and effort was spent trying to accomplish hemostasis. I had little choice but to proceed with the surgery. A medial parapatellar arthrotomy was performed. A massive intraarticular hematoma was encountered from the fracture. Soft tissue releases were performed. The knee was brought up into flexion. The distal femoral fragments were carefully excised with a combination of electrocautery and a surgical knife. Ultimately, all of the bone fragments were excised. The wound was irrigated on a number of occasions. The bleeding improved somewhat. A fresh distal femoral cut was made. The soft tissue was measured and the envelope for the distal femur was approximately 10 cm. The femoral canal was severely osteopenic. No broaching was necessary. A bone plug was placed down the femoral canal at about 150 mm. A trial femoral implant was placed. Attention was directed towards the proximal tibia. An intramedullary cutting guide was used to resect the proximal tibia. The tibial baseplate was noted to be a size 83. Trial reductions were performed. A 14-mm insert provided appropriate soft tissue balancing. The trial implants were all removed. The wound was thoroughly irrigated. The implants were assembled on the back table. We used a Biomet OSS distal femur. The stem was 11 mm x 150 mm. The body was 30 mm. The implants were cemented into place. There was persistent bleeding and suboptimal cementation could be accomplished. The wound was further irrigated while the cement cured. The arthrotomy was closed with numerous interrupted number 1 Ethibond. The skin was closed with subcuticular Vicryl and juan. A sterile wound VAC was applied over the skin. The patient was placed into a knee immobilizer. Estimated blood loss was at least 1,000 mL. All needle and sponge counts were correct. The patient was extubated and transported to the recovery room in stable condition. Job#: [id number] RAFITA
--- NOTE | 2018-03-13 18:20 | NUR ---
back to rm, pt sleeping easily arouses, immobilizer to l leg intact, blood infusing to r hand 20g, rome to gravity with dark yellow urine noted. vs 96.7, 99, 16,96/59, pt stable, call light in reach will continue to monitor
--- NOTE | 2018-03-13 18:57 | NUR ---
spoke to dr celaya re: hgb 6.8, blood culture results ( pt on antibiotics) and pt receiving 2 units of prbcs, order to recheck h&h 2 hrs after transfusion.
[2018-03-13 19:30] VITALS: BP 96/58
[2018-03-13 20:00] VITALS: BP 96/58
[2018-03-13] MEDS: GABAPENTIN 100 MG CAP PO SCH (21:00)
[2018-03-13] MEDS: SERTRALINE HCL 50 MG TAB PO SCH (21:00)
[2018-03-13] MEDS: LATANOPROST(OPTH) 2.5 ML BTL OP SCH (21:39)
--- NOTE | 2018-03-13 22:47 | NUR ---
Dr. Negron paged to inform on patient status. Patient's family member is concerned due to non movement to left arm, muscle twitching to right arm and right side facial drooping.
--- NOTE | 2018-03-13 23:00 | NUR ---
EKG done. Patient left the unit in stable via stretcher for CT scan. Report given to ICU nurse.
--- NOTE | 2018-03-13 23:00 | NUR ---
Dr. Cooper who is covering for Dr. Negron returned call. Telephone orders received for Stat brain CT w/o contrast, consult w/ neurology w/ Dr. Goins, transfer to ICU, administer 250ml NS bolus x1, administer 81 mg Aspirin & EKG.
[2018-03-13] MEDS ORDERED: ASPIRIN 325 MG TAB PO ONE (23:15)
[2018-03-13] MEDS ORDERED: SODIUM CHLORIDE 0.9% 250ML 250 ML IV ONE (23:15)
[2018-03-14] VITALS (12 sets, daily range): BP systolic 80–138; BP diastolic 42–68
--- NOTE | 2018-03-14 00:23 | Diagnostic Imaging Report ---
Exam: Head CT without contrast History: Altered mental status, dementia, rule out stroke. Comparison studies: Head CT 02/28/2018. Technique: Axial images were obtained from the skull base to the vertex. Coronal and sagittal images reconstructed from the axial data. Dose modulation, iterative reconstruction, and/or weight based adjustment of the mA/kV was utilized to reduce the radiation dose to as low as reasonably achievable. Radiation dose: Total DLP: 1065 mGy*cm. Estimated effective dose: DLP x 0.015 Intravenous contrast: None Findings: Scalp: No abnormalities. Bones: No fractures, blastic or lytic lesions. Brain sulci: Moderately prominent. Ventricles: R compensatory dilatation. No hydrocephalus. Extra-axial spaces: No masses, no fluid collection. Parenchyma: Acute nonhemorrhagic cortical/subcortical infarct regional to the right central sulcus/perirolandic gyri in the distal right MCA territory. No mass or acute hemorrhage. Confluent hypodensity throughout the supratentorial white matter is nonspecific most compatible chronic microvascular ischemic changes. Focal hypodensity at the anterior left temporal pole may reflect remote insult. There is moderate generalized volume loss with slightly greater disproportionate volume loss in the right hemisphere. Sellar/suprasellar region: No abnormalities. Craniocervical junction: Patent foramen magnum. No Chiari one malformation. Incidental findings: Atherosclerotic calcifications in the carotid siphons and intradural vertebral arteries. Chronic inflammatory changes in the right mastoids. Nonspecific left middle ethmoid opacification. IMPRESSION: 1. Acute, nonhemorrhagic infarct along the right central sulcus/perirolandic gyri. 2. No other changes from the previous head CT of 03/10/2018. 3. Moderate chronic microvascular ischemic changes. 4. Small anterior left temporal lobe hypodensity may reflect remote insult. 5. Advanced brain volume loss for age with greater volume loss in the right cerebral hemisphere. Signed by: Dr. Pako Caraballo M.D. on 03/14/2018 12:20 AM
[2018-03-14] MEDS: ACETAMINOPHEN 1000 MG/100 ML IV SCH ×3 (00:35→13:30)
[2018-03-14 00:47] LABS: HEMATOCRIT 19.9 % (34.2-44.1); HEMOGLOBIN 6.9 g/dL (12.0-16.0)
[2018-03-14] MEDS: SODIUM CHLORIDE 0.9% 1000ML 1,000 ML IV SCH ×2 (01:39→04:59)
--- NOTE | 2018-03-14 01:45 | NUR ---
dr tijerina and dr lara notified about pt hg of 6.9 both doctors ordered to give 1 unit of blood. I informed both doctors that there was only a surgical consent on the chart there was no blood consent. I also informed them of the inability to reach the POA at [phone] to get consent they both gave orders to give the blood even without consent.
[2018-03-14] MEDS ORDERED: SODIUM CHLORIDE 0.9% 250ML 250 ML IV ONE ×2 (02:00)
[2018-03-14] MEDS: INSULIN REGULAR, HUMAN 100 UNIT/1 ML 3ML VIAL SQ SCH ×2 (07:30→11:30)
[2018-03-14] MEDS: PANTOPRAZOLE SOD 40 MG TABEC PO SCH (07:30)
[2018-03-14 07:56] LABS: BASOPHILS % 0.4 % (0.0-1.0); EOSINOPHILS % 0.5 % (0.0-6.0); LYMPHOCYTES % 13.7 % (18.0-39.1); MEAN CORPUSCULAR HEMOGLOBIN 30.6 pg (28-32); MEAN CORPUSCULAR HGB CONC 33.3 g/dL (31-35); MEAN CORPUSCULAR VOLUME 91.7 fL (81-99); MONOCYTES # (AUTO) 0.5 (0.2-0.8); MONOCYTES % 6.3 % (4.4-11.3); NEUTROPHILS % 78.6 % (38.7-80.0); PLATELET COUNT 117 x10e3/uL (140-360); RED BLOOD COUNT 2.06 x10e6/uL (3.6-5.1); RED CELL DISTRIBUTION WIDTH 16.4 % (11.7-14.4)
[2018-03-14] MEDS: CELECOXIB 100 MG CAP PO SCH (08:00)
[2018-03-14 08:01] LABS: HEMATOCRIT 18.9 % (34.2-44.1); HEMOGLOBIN 6.3 g/dL (12.0-16.0)
[2018-03-14] MEDS: ASCORBIC ACID 500 MG TAB PO SCH (09:00)
[2018-03-14] MEDS: CEFEPIME 1GM/NS 0.9% 50 ML 50 ML IV SCH (09:00)
[2018-03-14] MEDS: MEMANTINE 10 MG TAB PO SCH (09:00)
[2018-03-14] MEDS: MULTIVITAMINS/MINERALS TAB PO SCH (09:00)
[2018-03-14] MEDS: AMLODIPINE BESYLATE 10 MG TAB PO SCH (09:00)
[2018-03-14] MEDS: ASPIRIN 81 MG CHEW TAB PO SCH (09:00)
[2018-03-14] MEDS: VENLAFAXINE HCL 37.5MG XR CAP PO SCH (09:00)
[2018-03-14] MEDS: NPH, HUMAN INSULIN ISOPHANE 100 UNIT/1 ML 3ML VIAL SQ SCH (09:00)
[2018-03-14] MEDS: ARTIFICIAL TEARS (OPTH) 15 ML BTL OP SCH (09:00)
[2018-03-14 09:05] LABS: ANION GAP 13.6 mmol/L (8-16); CALCIUM 7.8 mg/dL (8.4-10.2); POTASSIUM 3.6 mmol/L (3.5-5.1)
--- NOTE | 2018-03-14 10:18 | NUR ---
ATTEMPTED TO CALL FAMILY ABOUT HOSPICE CONSULT WAS UNABLE TO LEAVE MESSAGE WILL ATTEMPT AT LATER TIME.
--- NOTE | 2018-03-14 10:46 | NUR ---
patients family member at bedside, notified case specialist for f/u with hospice.
--- NOTE | 2018-03-14 10:57 | NUR ---
SPOKE WITH FAMILY, PT IS FROM [facility] AND HAS [facility] THERE. WILL RETURN WITH THESE SERVICES REINSTATED. SPOKE WITH DR BRADLEY HE WANTS ORTHO SURG CLEARANCE PRIOR TO DISCHARGE BACK TO FACILITY, LEFT MESSAGE IN OR FOR MD TO RETURN SW CALL TO UPDATE. CALLED MARIE WITH [facility] TO INITIATE.
[2018-03-14] MEDS: VANCOMYCIN 1GM/NS 250 ML 250 ML IV SCH (11:45)
[2018-03-14] MEDS ORDERED: ACETAMINOPHEN 1000 MG/100 ML IV PRN (15:45)
--- NOTE | 2018-03-14 17:50 | NUR ---
Report called to ATLIB Bills at [facility]. All questions answered
--- NOTE | 2018-03-14 18:00 | NUR ---
[facility] ETA is 20:00. will continue to monitor pt
[2018-03-14] MEDS: MORPHINE SULFATE INJ 4 MG/ML INJ 1ML IV PRN (20:40)
--- NOTE | 2018-03-14 20:43 | NUR ---
EMS picked up pt for transfer to [facility] per MD orders and per pt chart. Pts daughter present. No signs of distress noted. Pt given pain medication per her daughters request.
--- NOTE | 2018-03-16 15:16 | NUR ---
CALLED FACILITY TO ALERT OF POSITIVE BLOOD CULTURE SPOKE WITH NURSE SCHMIDT AND FAXED COPY OF RESULTS TO [phone]. ROXANA STATES PT IS ACTIVELY DYING ON HOSPICE CARE BUT SHE WILL ALERT THOSE INVOLVED WITH CARE.
--- NOTE | 2018-05-04 14:54 | Discharge Summary ---
FINAL DIAGNOSES 1. Sepsis, source unknown. The patient was made Hospice. Complete workup was not done. 2. Severely comminuted displaced fracture of the distal femur. 3. Severe dementia. 4. Blood cultures positive times 2. 5. History of cerebrovascular accident. 6. Bedbound status. ADMISSION HISTORY AND HOSPITAL COURSE: Ms. Blanco is a 67-year-old female with severe dementia and history of stroke. Came in after a fall from the [facility]. Patient had severely comminuted knee fracture. Knee repair procedure was done by surgery. The patient became septic and blood cultures were positive. She had severe dementia. She was bedbound. Family made her do not resuscitate. Further workup was not done. She was discharged with Hospice care to the [facility]. SOPHIA DAVIS MD Job#: [id number] ID
== END 2018-03-14 20:43 | disposition hospice, inpatient (51) | DRG 853 ==
LOC: ER 19:39 → ERHOLD 23:58 → MED/SURG 03-11 20:11 → ICU 03-13 23:52
PROVIDERS: ADMIT Internal Medicine; ATTEND Internal Medicine
PROC: 30233N1 Transfusion of Nonautologous Red Blood Cells into Peripheral Vein, Percutaneous Approach (ICD-10-PCS; 2018-03-13)
PROC: 0SRD0J9 Replacement of Left Knee Joint with Synthetic Substitute, Cemented, Open Approach (ICD-10-PCS; principal; 2018-03-13 12:30)
DX: A41.9 Sepsis, unspecified organism (principal); I63.9 Cerebral infarction, unspecified; M80.052A Age-related osteoporosis with current pathological fracture, left femur, initial encounter for fracture; N30.01 Acute cystitis with hematuria; W01.0XXA Fall on same level from slipping, tripping and stumbling without subsequent striking against object, initial encounter; I10 Essential (primary) hypertension; Z74.01 Bed confinement status; Z89.512 Acquired absence of left leg below knee; Z89.511 Acquired absence of right leg below knee; F01.50 Vascular dementia, unspecified severity, without behavioral disturbance, psychotic disturbance, mood disturbance, and anxiety; Z66 Do not resuscitate; G93.89 Other specified disorders of brain; G89.4 Chronic pain syndrome; E11.42 Type 2 diabetes mellitus with diabetic polyneuropathy; Z79.4 Long term (current) use of insulin; M17.12 Unilateral primary osteoarthritis, left knee; M81.8 Other osteoporosis without current pathological fracture; M24.562 Contracture, left knee; E78.5 Hyperlipidemia, unspecified
CPT/HCPCS: 36415; 51700; 70450; 71045; 72125; 72170; 80048; 80053; 81001; 82550; 82553; 82948; 83540; 83605; 83735; 84466; 84484; 85014; 85018; 85025; 85610; 85730; 86850; 86900; 86920; 87040; 87071; 87205; 93005; 93041; 97139; 99284; J0171; J0692; J1885; J2001; J2270; J2370; J2405; J2795; J3370; J7030; P9016